=== PATIENT | male | born 1960 | race African-American/Black ===

== ENCOUNTER 2021-03-15 11:58 | Emergency (ER) | payer OTHER, SELFPAY ==
[2021-03-15 12:07] VITALS: BP 132/76; PULSE 84; RESP 16; TEMP 35.8; O2SAT 98; BMI 21.8
--- NOTE | 2021-03-15 14:06 | ED_ITS ---
HPI - GI Bleed General Chief complaint: GI Bleed Stated complaint: GI bleed Time Seen by Provider: 03/15/21 13:45 Source: patient and family Mode of arrival: ambulatory Limitations: no limitations History of Present Illness HPI Narrative: 60-year-old male with history of hypertension and hyperlipidemia presents emergency department with fatigue decreased strength and noticing that he has had black tarry stools. Patient 1st noticed the dark stools 3 days ago he did go and see his primary care doctor today had blood work done that showed that he was anemic down to 7. Patient denies ever having bleeding issues in the past his last colonoscopy was 7 years ago. Patient denies fevers chills cough or shortness of breath. Patient states he is trying to do his yd work and felt very short of breath was able to comes to asset feel very weak with 3-0 he initially was seen at the primary care doctor. complaint: melena Related Data Allergies Allergy/AdvReac Type Severity Reaction Status Date / Time AMLODIPINE Allergy Unknown Rash Uncoded 03/15/21 12:11 LISINOPRIL Allergy Unknown Swelling Uncoded 03/15/21 12:11 Review of Systems Review of Systems: Review of systems: General: Patient denies any fever chills recent illness or falls Musculoskeletal: Denies back pain or body aches or other injuries HEENT: denies headache, runny nose, ear pain Respiratory: denies shortness of breath, cough Cardiovascular: no chest pain or palpitations : denies dysuria, frequency Abdomen: Black stools no nausea vomiting denies abdominal pain Extremities: no swelling, no pain Skin: no diaphoresis Yes all other systems are reviewed and are negative PMFSH Past Medical History Medical History (Updated 03/15/21 @ 15:32 by Ponce Knox DO) Diabetes High cholesterol History of GI bleed HTN (hypertension) Social History Social History Advance Directives: No Advance Directives Information Provided: No Physical Exam Vital Signs: Vital Signs: Last Vital Signs Temp 96.4 F L 03/15/21 12:07 Pulse 84 03/15/21 12:07 Resp 16 03/15/21 12:07 BP 132/76 03/15/21 12:07 Pulse Ox 98 03/15/21 12:07 Body Mass Index 21.8 General: Well-appearing well-nourished in no signs of distress HEENT: Normocephalic atraumatic Neck: No signs of JVD, no masses no tenderness or lymphadenopathy Cardiovascular: Regular rate and rhythm Respiratory: Clear to auscultation bilaterally Abdomen: Soft nontender no masses rectal exam performed guiac positive 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 Extremities: Normal pedal pulses no signs of edema Skin: Dry warm no rashes Back: No tenderness full ROM MDM - GI Bleed MDM Narrative Medical decision making narrative: Patient had hemoglobin of 7 and his primary care doctor's office likely the cause for his decreased fatigue he has also noted dark stools he is with positive likely said and patient likely needs admission for blood products. 1531 patient with a hemoglobin of 8 there is a national shortage for blood products due to COVID. Again is patient is admitted for this patient states he feels comfortable going home I will send home with strict return precautions patient is happy with plan to go home. Lab Data Result diagrams: 03/15/21 14:45 03/15/21 14:45 Labs: Lab Results 03/15/21 03/15/21 03/15/21 Range/Units 14:45 14:45 14:45 WBC 6.6 (4.8-10.8) X10*3/uL RBC 2.41 L (4.60-5.80) X10*6/uL Hgb 8.0 L (14.0-18.0) g/dl Hct 23.0 L (42-52) % MCV 95.4 (80-98) fL MCH 33.2 H (27.0-33.0) pg MCHC 34.8 (31.0-36.0) g/dl RDW 13.3 (11.0-16.0) % Plt Count 169 (160-400) X10*3/uL MPV 13.2 H (9.4-12.4) fL Immature Gran % (Auto) 1.4 H (0.0-0.4) % Neut % (Auto) 60.3 (45-73) % Lymph % (Auto) 26.8 (20-40) % [place] % (Auto) 9.8 (2-11) % Eos % (Auto) 1.1 (0-4) % Baso % (Auto) 0.6 (0-2) % Lymph # (Auto) 1.8 (1.2-4.9) X10*3/uL [place] # (Auto) 0.6 (0.1-1.2) X10*3/uL Eos # (Auto) 0.1 (0.0-0.4) X10*3/uL Baso # (Auto) 0.0 (0.0-0.2) X10*3/uL Abs Immat Gran (auto) 0.09 H (0.00-0.03) X10*3/uL Absolute Neuts (auto) 4.0 (2.0-8.3) X10*3/uL Absolute Nucleated RBC 0.050 H (0.0-0.012) X10*3/uL Nucleated RBC % (auto) 0.8 H (0.0-0.2) /100WBC PT 10.8 (9.9-13.0) SEC INR 1.0 (0.9-1.1) Sodium 135 (135-145) mmol/L Potassium 4.1 (3.3-5.1) mmol/L Chloride 96 (96-108) mmol/L Carbon Dioxide 27 (22-29) mmol/L Anion Gap 16 (12-20) BUN 33 H (9-16) mg/dL Creatinine 1.30 (0.5-1.4) mg/dL Estim Creat Clear Calc 66.7 Estimated GFR 57 Random Glucose 172 H (60-115) mg/dL Calcium 10.1 (8.4-10.2) mg/dL Total Bilirubin 0.4 (0.0-1.0) mg/dL AST 22 (5-37) U/L ALT 18 (0-40) U/L Alkaline Phosphatase 105 (39-117) U/L Total Protein 7.5 (6.5-8.0) g/dL Albumin 4.5 (3.5-5.0) g/dL COVID-19 ([facility]) (Negative) COVID-19 Clin Com Blood Type Crossmatch 03/15/21 03/15/21 Range/Units 14:45 14:45 WBC (4.8-10.8) X10*3/uL RBC (4.60-5.80) X10*6/uL Hgb (14.0-18.0) g/dl Hct (42-52) % MCV (80-98) fL MCH (27.0-33.0) pg MCHC (31.0-36.0) g/dl RDW (11.0-16.0) % Plt Count (160-400) X10*3/uL MPV (9.4-12.4) fL Immature Gran % (Auto) (0.0-0.4) % Neut % (Auto) (45-73) % Lymph % (Auto) (20-40) % [place] % (Auto) (2-11) % Eos % (Auto) (0-4) % Baso % (Auto) (0-2) % Lymph # (Auto) (1.2-4.9) X10*3/uL [place] # (Auto) (0.1-1.2) X10*3/uL Eos # (Auto) (0.0-0.4) X10*3/uL Baso # (Auto) (0.0-0.2) X10*3/uL Abs Immat Gran (auto) (0.00-0.03) X10*3/uL Absolute Neuts (auto) (2.0-8.3) X10*3/uL Absolute Nucleated RBC (0.0-0.012) X10*3/uL Nucleated RBC % (auto) (0.0-0.2) /100WBC PT (9.9-13.0) SEC INR (0.9-1.1) Sodium (135-145) mmol/L Potassium (3.3-5.1) mmol/L Chloride (96-108) mmol/L Carbon Dioxide (22-29) mmol/L Anion Gap (12-20) BUN (9-16) mg/dL Creatinine (0.5-1.4) mg/dL Estim Creat Clear Calc Estimated GFR Random Glucose (60-115) mg/dL Calcium (8.4-10.2) mg/dL Total Bilirubin (0.0-1.0) mg/dL AST (5-37) U/L ALT (0-40) U/L Alkaline Phosphatase (39-117) U/L Total Protein (6.5-8.0) g/dL Albumin (3.5-5.0) g/dL COVID-19 ([facility]) Negative (Negative) COVID-19 Clin Com See Note Blood Type B Positive Crossmatch See Detail Discharge Plan Discharge Clinical Impression: Melena, Lower gastrointestinal hemorrhage, Anemia Patient Disposition: Home, Self-Care Instructions: Anemia (ED), Colonoscopy (DC), Melena (ED) Additional Instructions: Please call follow-up with your doctor if you have worsening shortness of breath or lightheaded or have any other concerns please do not hesitate to come back to emergency department.
[2021-03-15 14:55] LABS: Mean Corpuscular Volume 95.4 fL (80-98); WBC ABN SCTR 1
[2021-03-15 15:03] LABS: Prothrombin Time 10.8 SEC (9.9-13.0)
[2021-03-15 15:05] LABS: Basophils Percent Auto 0.6 % (0-2); Mean Platelet Volume 13.2 fL (9.4-12.4); Red Cell Distribution Width 13.3 % (11.0-16.0); SCAN SMEAR FLAG 1
[2021-03-15 15:07] LABS: Eosinophils Absolute Auto 0.1 X10*3/uL (0.0-0.4); Eosinophils Percent Auto 1.1 % (0-4); Imm Gran Abs Auto 0.09 X10*3/uL (0.00-0.03); Imm Gran Pct Auto 1.4 % (0.0-0.4); Lymphocytes Absolute Auto 1.8 X10*3/uL (1.2-4.9); Lymphocytes Percent Auto 26.8 % (20-40); Mean Corpuscular HGB Conc 34.8 g/dl (31.0-36.0); Mean Corpuscular Hemoglobin 33.2 pg (27.0-33.0); Monocytes Absolute Auto 0.6 X10*3/uL (0.1-1.2); Monocytes Percent Auto 9.8 % (2-11); NRBC Pct Auto 0.8 /100WBC (0.0-0.2); Neutrophils Percent Auto 60.3 % (45-73); Platelet Count 169 X10*3/uL (160-400); Red Blood Count 2.41 X10*6/uL (4.60-5.80)
[2021-03-15 15:11] LABS: COVID-19 Test Negative (Negative); IDNOW Serial# 9DD0AD1C
[2021-03-15 15:17] LABS: MANUAL DIFF FLAG NO; PLT ABN DIST 1; WBC ABN SCTR FOR CBC 1; White Blood Count 6.6 X10*3/uL (4.8-10.8)
[2021-03-15 15:18] LABS: Alanine Aminotransferase 18 U/L (0-40); Albumin Level 4.5 g/dL (3.5-5.0); Alkaline Phosphatase 105 U/L (39-117); Anion Gap 16 (12-20); Aspartate Amino Transferase 22 U/L (5-37); Bilirubin Total 0.4 mg/dL (0.0-1.0); Blood Urea Nitrogen 33 mg/dL (9-16); Calcium 10.1 mg/dL (8.4-10.2); Carbon Dioxide 27 mmol/L (22-29); Chloride 96 mmol/L (96-108); Creatinine Clr Calc Pharmacy 66.7; Estimated Glomerular Filt Rate 57; Glucose Random 172 mg/dL (60-115); Potassium 4.1 mmol/L (3.3-5.1); Sodium 135 mmol/L (135-145); Total Protein 7.5 g/dL (6.5-8.0)
== END 2021-03-15 16:05 | disposition home or self-care (01) ==
PROVIDERS: Emergency Provider Student in an Organized Health Care Education/Training Program; PCP Internal Medicine
DX: K92.2 Gastrointestinal hemorrhage, unspecified (principal); K92.1 Melena; I10 Essential (primary) hypertension; Z20.822 Contact with and (suspected) exposure to COVID-19; Z79.899 Other long term (current) drug therapy
CPT/HCPCS: 36415; 80053; 85025; 85610; 86850; 86900; 86901; 87635; 99283

== ENCOUNTER 2021-08-03 12:46 | Outpatient (REF) | payer OTHER, SELFPAY ==
--- NOTE | ~2021-08-03 | MR_ITS ---
EXAMINATION: MRI OF THE LEFT WRIST WITHOUT CONTRAST CLINICAL INFORMATION: Pain. COMPARISON: None TECHNIQUE: MRI of the left wrist was performed without contrast. FINDINGS: BONE AND ARTICULAR CARTILAGE: First carpometacarpal joint: There is diffuse high-grade cartilage loss throughout the joint. There are marginal osteophytes. There are loose bodies measuring up to 4 mm. There is subchondral cystic change on both sides of the joint. There is a joint effusion and synovitis. Overall severe osteoarthritis. Radiocarpal compartment: There is cartilage heterogeneity and subchondral cystic change along the proximal ulnar side of the lunate compatible with mild arthrosis. Midcarpal compartment: Cartilage heterogeneity and subchondral cystic change between the hamate and lunate articulation indicative of mild arthrosis. Triscaphoid joint: Mild cartilage heterogeneity indicative of mild osteoarthritis. Carpal cysts within the junction of the middle and distal third portion of the scaphoid not clearly related to arthrosis. TRIANGULAR FIBROCARTILAGE COMPLEX: Intact. INTRAOSSEOUS LIGAMENTS: Intact. MUSCLES AND TENDONS: Intact. SUBCUTANEOUS SOFT TISSUES: Normal. NEUROVASCULAR STRUCTURES: Normal. MR/MR wrist LT wo con IMPRESSION: Severe osteoarthritis of the 1st carpometacarpal joint, associated joint effusion and loose bodies. Scattered additional osteoarthritis in the mid carpal compartment and radiocarpal compartment.
== END 2021-08-03 12:47 | disposition home or self-care (01) ==
LOC: HO.MRI 12:46
PROVIDERS: Visit Provider Internal Medicine
DX: M25.532 Pain in left wrist (principal)
CPT/HCPCS: 73221